=== PATIENT | male | born 1955 | race African-American/Black ===

== ENCOUNTER 2019-02-07 09:38 | Emergency (ER) | payer OTHER ==
[~2019-02-07] VITALS: Ht 167.6 cm; Wt 118.0 kg
[2019-02-07 09:43] VITALS: BP 195/85
== END 2019-02-07 14:49 | disposition left against medical advice (07) ==
LOC: ER 09:38
DX: R07.9 Chest pain, unspecified (principal); Z53.21 Procedure and treatment not carried out due to patient leaving prior to being seen by health care provider
CPT/HCPCS: 93005